=== PATIENT | female | born 1995 | race African-American/Black ===

== ENCOUNTER 2019-09-02 06:08 | Emergency (ER) | payer OTHER ==
[~2019-09-02] VITALS: Ht 170.2 cm; Wt 81.6 kg
[2019-09-02] MEDS: fentaNYL PF VIAL 100 MCG/2 ML VIAL IM ONE (06:43)
--- NOTE | 2019-09-02 07:21 | PHYS DOC ---
Past Medical History Past Medical History: No Pertinent History Past Surgical History: No Surgical History Alcohol Use: None Drug Use: None Adult General Chief Complaint Chief Complaint: MECHANICAL FALL HPI HPI Patient is a 24 year old patient without history of medical problem who presents via EMS with complaint of fall and back and tailbone pain. Patient states she lost her balance and had a fall from 5 stairs and landed on hard wood floor without head injury or loss of consciousness patient complaining of pain in tailbone and back and rated her pain 9/10 and denies focal neuro deficit, nausea and vomiting, headache, shortness of breath and chest pain. Patient was sitting on the chair at arrival of EMS and c-collar was placed. Patient has 2 months old and denies . Review of Systems Review of Systems Constitutional: Denies fever or chills [] Eyes: Denies change in visual acuity, redness, or eye pain [] HENT: Denies nasal congestion or sore throat [] Respiratory: Denies cough or shortness of breath [] Cardiovascular: No additional information not addressed in HPI [] GI: Denies abdominal pain, nausea, vomiting, bloody stools or diarrhea [] : Denies dysuria or hematuria [] Musculoskeletal: Reports back pain Integument: Denies rash or skin lesions [] Neurologic: Denies headache, focal weakness or sensory changes [] Endocrine: Denies polyuria or polydipsia [] All other systems were reviewed and found to be within normal limits, except as documented in this note. Current Medications Current Medications Current Medications Medications (Trade) Dose Ordered Sig/Jess Start Time Stop Time Status Last Admin Dose Admin Fentanyl Citrate (Fentanyl 2ml Vial) 50 mcg 1X ONCE 09/02/19 07:00 09/02/19 07:01 DC 09/02/19 06:43 50 MCG Ondansetron HCl (Zofran Odt) 4 mg STK-MED ONCE 09/02/19 07:35 09/02/19 07:35 DC Allergies Allergies Allergies Coded Allergies Type Severity Reaction Last Updated Verified No Known Drug Allergies 09/02/19 No Physical Exam Physical Exam Constitutional: Well developed, well nourished, mild distress, non-toxic appearance. [] HENT: Normocephalic, atraumatic. Eyes: PERRLA, EOMI, conjunctiva normal, no discharge. [] Neck: Immobilized with c-collar prior to arrival to ER Cardiovascular:Heart rate regular rhythm, no murmur [] Lungs & Thorax: Bilateral breath sounds clear to auscultation [] Abdomen: Bowel sounds normal, soft, no tenderness, no masses, no pulsatile masses. [] Skin: Warm, dry, no erythema, no rash. [] Back: No midline tenderness, no CVA tenderness. [] Extremities: No tenderness, no cyanosis, no clubbing, ROM intact, no edema. [] Neurologic: Alert and oriented X 3, no focal deficits noted. [] Psychologic: Affect normal, judgement normal, mood normal. [] Current Patient Data Vital Signs Vital Signs Date Time Temp Pulse Resp B/P (MAP) Pulse Ox O2 Delivery O2 Flow Rate FiO2 09/02/19 06:08 97.5 55 20 130/85 (100) 96 Room Air 97.5 EKG EKG [] Radiology/Procedures Radiology/Procedures [facility] [address] [place] [address] IMAGING REPORT Signed PATIENT: SUZY SALOMON ACCOUNT: [id number] : 1995 LOCATION: ER AGE: 24 SEX: F EXAM STATUS: REG ER ORD. PHYSICIAN: FARZANEH ALFARO MD REASON: fall,back pain PROCEDURE: LUMBAR SPINE 2-3V SACRUM COCCYX 3V, LUMBAR SPINE 2-3V 09/02/2019 6:30 AM Indication: Fall, back pain COMPARISON: None available TECHNIQUE: 3 views of the lumbar spine are provided. Findings: Minimal retrolisthesis of L4 on L5. Vertebral body heights are maintained. No acute fracture is identified. Mild disc height loss at L5-S1 with mild endplate sclerosis. No significant endplate degenerative changes are identified. Is mild/moderate facet arthropathy at L4-L5. No significant osseous neuroforaminal stenosis or spinal canal stenosis. Nonobstructive bowel gas pattern. Sacrum and coccyx are intact. Sacroiliac joints are well aligned. Impression: No acute fracture of the lumbar spine. Mild lumbar spondylosis. No acute fracture of the sacrum and coccyx. Electronically signed by: Jose Johnson MD (09/02/2019 8:07 AM) [facility] DICTATED and SIGNED BY: JOSE JOHNSON MD DATE: 09/02/19 0807 [facility] [address] [place] [address] IMAGING REPORT Signed PATIENT: SUZY SALOMON ACCOUNT: [id number] : 1995 LOCATION: ER AGE: 24 SEX: F EXAM STATUS: REG ER ORD. PHYSICIAN: FARZANEH ALFARO MD REASON: fall PROCEDURE: CT HEAD AND CERVICAL SPINE WO Examination: CT HEAD AND CERVICAL SPINE WO History: Fall, pain Comparison/Correlation: None Findings: Axial images of the head and cervical spine were obtained without contrast. Sagittal and coronal reformatted images of the cervical spine were provided. The ventricles are normal size. No intracranial hemorrhage, midline shift, or mass effect. No depressed fracture. Alignment of the cervical spine is normal. No fracture or malalignment. Soft tissues are unremarkable. Neural foramina are patent. Spinal canal is symmetric and unremarkable. Impression: No intracranial hemorrhage. No fracture or cervical spine malalignment. Unremarkable exam. PQRS Compliance Statement: One or more of the following individualized dose reduction techniques were utilized for this examination: 1. Automated exposure control 2. Adjustment of the mA and/or kV according to patient size 3. Use of iterative reconstruction technique Electronically signed by: Duran Hadley MD (09/02/2019 7:34 AM) [facility] DICTATED and SIGNED BY: DURAN HADLEY MD DATE: 09/02/19 0734 Course & Med Decision Making Course & Med Decision Making Pertinent Imaging studies reviewed. (See chart for details) Evaluation of patient in ER showed 24-year-old female patient with a fall and injury to tailbone or coccyx. Patient had unremarkable physical exam and x-ray of lumbar and coccyx and CT head and neck. C-collar was removed after negative CT. Treated with fentanyl and sublingual Zofran with improvement of her pain and ambulated well. Patient was advised to use doughnut-shaped pillow and apply ice on the affected area and increase fluid intake. I've spoken with the patient and/or caregivers. I've explained the patient's condition, diagnosis and treatment plan based on information available to me at this time. I've answered the patient's and/or caregivers questions and addressed any concerns. The patient and/or caregivers have a good understanding the patient's diagnosis, condition and treatment plan as can be expected at this point. Vital signs have been stabilized. The patient's condition is stable for discharge from the emergency department. The patient will pursue further outpatient evaluation with her primary care provider or other designated consulting physician as outlined in the discharge instructions. Patient and/or caregivers are agreeable to this plan of care and follow-up instructions have been explained in detail. The patient and/or caregivers have received these instructions in written format and expressed understanding of these discharge instructions. The patient and her caregivers are aware that if any significant change in condition or worsening of symptoms should prompt him to immediately return to this of the closest emergency department. If an emergent department is not readily available I would encourage him to call 911. Dragon Disclaimer Dragon Disclaimer This electronic medical record was generated, in whole or in part, using a voice recognition dictation system. Departure Departure Impression: Primary Impression: Fall down stairs Additional Impressions: Coccyx contusion Acute lumbosacral myofascial strain Disposition: HOME, SELF-CARE (at 0 [phone]) Condition: IMPROVED Referrals: NO PCP (PCP) Patient Instructions: Lumbosacral Strain, Tailbone Injury Additional Instructions: Drink plenty of liquids Follow-up with your primary care physician in 3-5 days Return to ER if not getting better Apply ice on the affected area Use doughnut shaped pillow for sitting Thank you for visiting [facility]. We appreciate you trusting us with your care. If any additional problems come up don't hesitate to return to visit us. Please follow up with your primary care provider so they can plan additional care if needed and know about the problem that you had. If symptoms worsen come back to the Emergency Department. Any concerning symptoms that start such as chest pain, shortness of air, weakness or numbness on one side of the body, running high fevers or any other concerning symptoms return to the ER. Scripts Ondansetron Hcl (ZOFRAN) 4 Mg Tablet 1 TAB PO PRN Q6-8HRS for nausea, #12 TAB Prov: FARZANEH ALFARO MD 09/02/19 Hydrocodone/Apap 5-325 (NORCO 5-325 TABLET) 1 Each Tablet 1 TAB PO PRN Q6HRS PRN for PAIN, #14 TAB 0 Refills Prov: FARZANEH ALFARO MD 09/02/19 Problem Qualifiers Primary Impression: Fall down stairs Encounter type: subsequent encounter Qualified Codes: W10.8XXD - Fall (on) (from) other stairs and steps, subsequent encounter Additional Impressions: Coccyx contusion Encounter type: initial encounter Qualified Codes: S30.0XXA - Contusion of lower back and pelvis, initial encounter Acute lumbosacral myofascial strain Encounter type: initial encounter Qualified Codes: S39.012A - Strain of muscle, fascia and tendon of lower back, initial encounter FARZANEH ALFARO MD Sep 02, 2019 07:20
[2019-09-02] MEDS ORDERED: ONDANSETRON ODT 4 MG TAB.RAPDIS. ONE (07:35)
[2019-09-02] MEDS: ONDANSETRON ODT 4 MG TAB.RAPDIS. PO ONE (07:36)
--- NOTE | 2019-09-02 07:37 | RAD ---
Examination: CT HEAD AND CERVICAL SPINE WO History: Fall, pain Comparison/Correlation: None Findings: Axial images of the head and cervical spine were obtained without contrast. Sagittal and coronal reformatted images of the cervical spine were provided. The ventricles are normal size. No intracranial hemorrhage, midline shift, or mass effect. No depressed fracture. Alignment of the cervical spine is normal. No fracture or malalignment. Soft tissues are unremarkable. Neural foramina are patent. Spinal canal is symmetric and unremarkable. Impression: No intracranial hemorrhage. No fracture or cervical spine malalignment. Unremarkable exam. PQRS Compliance Statement: One or more of the following individualized dose reduction techniques were utilized for this examination: 1. Automated exposure control 2. Adjustment of the mA and/or kV according to patient size 3. Use of iterative reconstruction technique Electronically signed by: Duran Jones MD (09/02/2019 7:34 AM) [facility]
[2019-09-02 07:40] VITALS: BP 140/92
--- NOTE | 2019-09-02 08:10 | RAD ---
SACRUM COCCYX 3V, LUMBAR SPINE 2-3V 09/02/2019 6:30 AM Indication: Fall, back pain COMPARISON: None available TECHNIQUE: 3 views of the lumbar spine are provided. Findings: Minimal retrolisthesis of L4 on L5. Vertebral body heights are maintained. No acute fracture is identified. Mild disc height loss at L5-S1 with mild endplate sclerosis. No significant endplate degenerative changes are identified. Is mild/moderate facet arthropathy at L4-L5. No significant osseous neuroforaminal stenosis or spinal canal stenosis. Nonobstructive bowel gas pattern. Sacrum and coccyx are intact. Sacroiliac joints are well aligned. Impression: No acute fracture of the lumbar spine. Mild lumbar spondylosis. No acute fracture of the sacrum and coccyx. Electronically signed by: Aishwarya Patel MD (09/02/2019 8:07 AM) [id number]
[2019-09-02] MEDS ORDERED: HYDR-3164 PO (08:31)
[2019-09-02] MEDS ORDERED: ONDA4TAB7 PO (08:31)
== END 2019-09-02 08:40 | disposition home or self-care (01) ==
LOC: ER 06:08
DX: S39.012A Strain of muscle, fascia and tendon of lower back, initial encounter (principal); R51 Headache; W10.8XXA Fall (on) (from) other stairs and steps, initial encounter; Y93.89 Activity, other specified; Y92.89 Other specified places as the place of occurrence of the external cause; Y99.8 Other external cause status
CPT/HCPCS: 70450; 72100; 72125; 72220; 96372; 99284; J3010; Q0162